=== PATIENT | male | born 1950 | race Caucasian/White ===

== ENCOUNTER 2024-07-19 11:29 | Emergency (ER) | payer MEDICARE, OTHER, SELFPAY ==
[2024-07-19 11:31] VITALS: BP 169/100
--- NOTE | 2024-07-19 13:14 | ED.GENMED ---
History of Present Illness
General
Chief Complaint: Fall
Source: patient
Exam Limitations: none
Time Seen by Provider: 07/19/24 11:39
Nursing documentation reviewed up to this point in time: agreed with
History of Present Illness
History of Present Illness:
74-year-old male past medical history of cirrhosis of the liver, [place] status post liver transplant presenting to the emergency department today with concerns of right-sided wrist discomfort after trip and fall landing on his wrist. Denies any
additional injuries no head trauma no neck pain no numbness or weakness.
Review of Systems
Review of Systems
Allergies reviewed?: Yes
All Other Systems: ROS reviewed and negative except as documented in HPI and ROS
Phy Exam
Physical Exam
Physical Exam:
GENERAL: Alert , in no apparent distress
EYE: pupils equal and reactive
NECK: Supple, no significant adenopathy.
ENT: o/p clr, mmm.
CARDIAC: Regular rate and rhythm .
LUNGS: Clear breath sounds bilaterally, no acute respiratory distress, no wheezes/rales/rhonchi
ABDOMEN: Soft, without focal tenderness, no r/g, no cvat
NEUROLOGICAL: Alert and oriented, no focal neuro deficits
SKIN: Warm and dry, skin intact.
MUSCULOSKELETAL: Tenderness to the distal radius otherwise increased discomfort with movement of the wrist but able to move at the wrist. Normal distal pulses of the radius and ulna. No edema, well perfused.
PSYCH: Normal and appropriate interaction.
Course
Orders/Labs/Results
Orders:
Orders
07/19/24 11:35
Wrist, Right 3 Views [CR Wrist - Right Min 3 Views] Urgent
Comment: c/o right wrist pain
Reason For Exam: fell yesterday
Vital Signs
Initial and Last Documented VS:
Initial Vital Signs
Temp Pulse Resp BP Pulse Ox
97.6 F 68 16 169/100 96
07/19/24 11:31 07/19/24 11:31 07/19/24 11:31 07/19/24 11:31 07/19/24 11:31
Last Documented Vital Signs
Temp Pulse Resp BP Pulse Ox
97.6 F 68 16 169/100 96
07/19/24 11:31 07/19/24 11:31 07/19/24 11:31 07/19/24 11:31 07/19/24 11:31
Procedures
Splinting/Sling Placement
Right Wrist:
Procedure completed by: Myself
Pre-splint extermity exam: neurovascular intact
Type of splint: dorsal/volar
Splint material: fiberglass
Splint checked by provider?: Yes
Type of sling: sling fitted
Normal distal neurovascular exam?: Yes
MDM/Problems Addressed
MDM/Problems Addressed:
74-year-old male presenting to the emergency department today after a trip and fall landing on his right wrist last night. Denies any head trauma loss of consciousness no numbness or weakness. No symptoms other than right-sided wrist pain. He was
found to have a potential nondisplaced distal radius fracture he was advised for close outpatient follow-up with Ortho. Also advised for follow-up with possibility of scapholunate injury though he will be reassessed by Ortho moving forward. Return
precautions given.
*Critical Care Note
Total Time (30-74mins, 75-104mins- exclusive of procedures): Not Applicable
ED Attending Note
-
Portions of this chart may have been created with voice recognition software.� Occasional wrong word or��sound alike� substitutions may have occurred due to the inherent limitations of voice recognition software.
Discharge Plan
Departure
Patient Disposition: Home (Routine Discharge)
Date of Disposition: 07/19/24
Time of Disposition: 13:24
Patient with high blood pressure during this ER visit?: No
Condition: Good
Covid-19: Not Applicable
Discharge Problem:
Distal radial fracture
Instructions: Wrist Fracture
Referrals:
Bronson Elizabeth MD [Family Provider] -
Megan Lara I., DO [Active] - Follow up in 5-7 days
Activity Restrictions/Additional Instructions:
You came to the emergency department today with concerns of wrist discomfort. You are found to have a potential nondisplaced fracture to distal radius. Please leave the splint in place until follow-up with orthopedics. Return for any worsening,
new or concerning symptoms.
Interventions
Interventions:
*Risk Screen - Suicide Last Done: 07/19/24 11:31
*Neglect/Abuse Screening Last Done: 07/19/24 11:31
ED-Musculoskeletal Assessment Last Done: 07/19/24 12:10
ED- Neurological Assessment Last Done: 07/19/24 12:10
ED-Skin Assessment Last Done: 07/19/24 12:10
Discharge Date and Time
Print Language: GEORGIAN
== END 2024-07-19 13:43 | disposition home or self-care (01) ==
LOC: EMR 11:29
PROVIDERS: EMERGENCY PHYSICIAN Emergency Medicine; FAMILY PHYSICIAN Internal Medicine
DX: S52.591A Other fractures of lower end of right radius, initial encounter for closed fracture (principal); W01.0XXA Fall on same level from slipping, tripping and stumbling without subsequent striking against object, initial encounter; K74.60 Unspecified cirrhosis of liver; K75.81 Nonalcoholic steatohepatitis (NASH); Z94.4 Liver transplant status
CPT/HCPCS: 29125; 99283; 73110